=== PATIENT | female | born 1995 | race Caucasian/White ===

== ENCOUNTER 2018-06-05 10:43 | Emergency (ER) | payer BC ==
[2018-06-05 11:09] VITALS: BP 107/64
--- NOTE | 2018-06-05 11:42 | UC ---
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 She has developed a guttate psoriasis rash. BLood work she brought in from her provider shows a normal white coutn of 10.0 and other nelson normal CBC. her mycoplasm pnuemonia antibodies elevatd at 345. she is asymtpomatic. no complaints of cough or sore throat. She was told by her dermatology office to come here ant get antibioitcs. patient is afebrile. carlitos Triamcinolone to her rash with good results - History of Current Complaint Chief Complaint: UCGeneralIllness Time Seen by Provider: 06/05/18 11:05 Stated Complaint: PNEUMONIA Hx Obtained From: Patient Hx Last Menstrual Period: 12/28/17 ?: No Onset/Duration: Sudden Onset, Lasting Weeks Skin Exposure Onset/Duration: Weeks Ago Timing: Constant Onset Severity: Mild Current Severity: Mild Pain Intensity: 0 Character: Raised Aggravating Factor(s): Nothing Alleviating Factor(s): Nothing - Allergy/Home Medications Allergies/Adverse Reactions: Allergies Allergy/AdvReac Type Severity Reaction Status Date / Time No Known Allergies Allergy Verified 06/05/18 10:57 Home Medications: Home Medications Ibuprofen TAB* [Advil TAB*] 400 mg PO Q6H PRN 06/05/18 [History Confirmed ] Levothyroxine TAB* [Synthroid TAB*] 50 mcg PO DAILY 06/05/18 [History Confirmed 06/05/18] Norethindr/Eth Estradiol(Nf) [Lo Loestrin Fe (NF)] 1 tab PO DAILY 06/05/18 [ History Confirmed 06/05/18] Review of Systems All Other Systems Reviewed And Are Negative: Yes Constitutional: Positive: Negative Skin: Positive: Rash Eyes: Positive: Negative ENT: Positive: Negative Respiratory: Positive: Negative Cardiovascular: Positive: Negative Gastrointestinal: Positive: Negative Genitourinary: Positive: Negative Motor: Positive: Negative Neurovascular: Positive: Negative Musculoskeletal: Positive: Negative Neurological: Positive: Negative Psychological: Positive: Negative Is Patient Immunocompromised?: No PMH/Surg Hx/FS Hx/Imm Hx Previously Healthy: Yes - Surgical History Surgical History: Yes Surgery Procedure, Year, and Place: appy. wisdom teeth - Family History Known Family History: Positive: Respiratory Disease - asthma - Social History Alcohol Use: Occasionally Substance Use Type: None Smoking Status (MU): Never Smoked Tobacco Physical Exam Triage Information Reviewed: Yes Appearance: Well-Appearing, Well-Nourished, Pain Distress Vital Signs: Initial Vital Signs Temp 98.3 F 06/05/18 10:58 Pulse 62 06/05/18 10:58 Resp 14 06/05/18 10:58 BP 107/64 06/05/18 10:58 Pulse Ox 99 06/05/18 10:58 Vital Signs Reviewed: Yes Eye Exam: Normal ENT Exam: Normal Dental Exam: Normal Neck exam: Normal Respiratory Exam: Normal Respiratory: Positive: Chest non-tender, Lungs clear, Normal breath sounds Cardiovascular Exam: Normal Cardiovascular: Positive: RRR, No Murmur, Pulses Normal Abdominal Exam: Normal Abdomen Description: Positive: Nontender, No Organomegaly, Soft Bowel Sounds: Positive: Present Musculoskeletal Exam: Normal Neurological Exam: Normal Psychological Exam: Normal Skin: Positive: Rashes - from the neck down, small flat plaques of scaly skin Course/Dx - Course Course Of Treatment: hx obtained, exam performed ,meds reviewed, chest xray completed due to patients concern over pnuemonia and rapd strep performed due to her PCP telling her she has an infection - Differential Diagnoses - Skin Complaint Differential Diagnoses: Contact Dermatitis, Drug Rash, Medication; Adverse Reaction, Urticaria - Diagnoses Provider Diagnosis: Psoriasis, Strep pharyngitis Discharge - Sign-Out/Discharge Documenting (check all that apply): Patient Departure All imaging exams completed and their final reports reviewed: Yes - Discharge Plan Condition: Stable Disposition: HOME Patient Education Materials: Strep Throat (DC) Referrals: No Primary Care Phys,NOPCP [Primary Care Provider] - Additional Instructions: 1. take the medication as prescribed. 2. Continue with the triamcinolone for the rash 3. FOllow up as needed. - Billing Disposition and Condition Condition: STABLE Disposition: Home
== END 2018-06-05 11:52 | disposition home or self-care (01) ==
LOC: UCCORT 10:43
DX: L40.4 Guttate psoriasis (principal); J02.9 Acute pharyngitis, unspecified; B95.0 Streptococcus, group A, as the cause of diseases classified elsewhere
CPT/HCPCS: 71046; 87651; 99202; G0463